=== PATIENT | female | born 1970 ===

== ENCOUNTER 2017-04-28 10:33 | Emergency (ER) | payer MEDICAID ==
[2017-04-28] MEDS ORDERED: Sodium Chloride 0.9% 1,000 ML IV STA (10:59)
--- NOTE | 2017-04-28 11:03 | ED PDOC ---
HPI: Abdomen Time Seen by Provider: 04/28/17 10:50 History Per: Patient Onset/Duration Of Symptoms: Days (2) Current Symptoms Are (Timing): Still Present Severity: Moderate Pain Scale Rating Of: 3 Location Of Pain/Discomfort: LLQ Quality Of Discomfort: Unable To Describe Associated Symptoms: denies: Nausea, Vomiting, Diarrhea, Urinary Symptoms Additional Complaint(s): LLQ abd pain radiating up and down leg x 2 days. Debies NVD. No urinary sxs. Assoc with chills. Past Medical History Vital Signs: Last Vital Signs Temp 98 F 04/28/17 11:06 Pulse 81 04/28/17 11:06 Resp 20 04/28/17 11:06 BP 130/60 04/28/17 11:06 Pulse Ox 100 04/28/17 11:06 - Medical History PMH: No Chronic Diseases - Surgical History Surgical History: Cholecystectomy - Family History Family History: States: Unknown Family Hx - Immunization History Hx Tetanus Toxoid Vaccination: No Hx Influenza Vaccination: No Hx Pneumococcal Vaccination: No - Home Medications Home Medications: Ambulatory Orders Medication Instructions Recorded Naproxen 500 mg PO BID #30 tab 04/19/17 Phenazopyridine HCl [Pyridium] 200 mg PO BID #6 tablet 04/19/17 Naproxen [Naprosyn] 500 mg PO Q12H #20 tab 04/28/17 - Allergies Allergies/Adverse Reactions: Allergies Allergy/AdvReac Type Severity Reaction Status Date / Time No Known Allergies Allergy Verified 04/19/17 14:30 Review of Systems Constitutional: Positive for: Chills. Negative for: Fever Gastrointestinal: Positive for: Abdominal Pain. Negative for: Nausea, Vomiting , Diarrhea Genitourinary Female: Negative for: Dysuria, Frequency Musculoskeletal: Negative for: Back Pain Physical Exam - Physical Exam Appears: Positive for: Non-toxic, No Acute Distress Skin: Positive for: Normal Color Cardiovascular/Chest: Positive for: Regular Rate, Rhythm Respiratory: Positive for: CNT, Normal Breath Sounds Gastrointestinal/Abdominal: Positive for: Bowel Sounds, Soft. Negative for: Tenderness, Mass Back: Negative for: L CVA Tenderness, R CVA Tenderness - Laboratory Results Result Diagrams: 04/28/17 11:34 04/28/17 11:34 Disposition - Clinical Impression Clinical Impression: Uterine leiomyoma - Patient ED Disposition Is Patient to be Admitted: No Counseled Patient/Family Regarding: Studies Performed, Diagnosis, Need For Followup, Rx Given - Disposition [facility] Disposition: Routine/Home Disposition Time: 13:08 Condition: FAIR Prescriptions: Naproxen [Naprosyn] 500 mg PO Q12H #20 tab Instructions: Uterine Fibroids Print Language: ROMANIAN
[2017-04-28 11:10] VITALS: RESP 20; TEMP 98
[2017-04-28 11:43] LABS: BASO # 0.1 K/uL (0.0-0.2); BASO % 0.6 % (0.0-2.0); EOS % 0.1 % (0.0-4.0); HEMOGLOBIN 12.6 g/dL (12.0-16.0); LYMPH # 1.8 K/uL (1.0-4.3); LYMPH % 13.5 % (20.0-40.0); MEAN CORPUSCULAR HEMOGLOBIN 26.7 pg (27.0-31.0); MEAN CORPUSCULAR HGB CONC 33.7 g/dL (33.0-37.0); MEAN PLATELET VOLUME 10.2 fl (7.2-11.7); MONO # 0.7 K/uL (0.0-0.8); MONO % 5.7 % (0.0-10.0); NEUT # 10.4 K/uL (1.8-7.0); NEUT % 80.1 % (50.0-75.0); RBC 4.74 Mil/uL (3.80-5.20); RED CELL DISTRIBUTION WIDTH 15.8 % (11.5-14.5)
[2017-04-28 12:01] LABS: ALB/GLOB RATIO 1.4 (1.0-2.1); ALBUMIN 4.5 g/dL (3.5-5.0); ALT/SGPT 26 U/L (9-52); AST/SGOT 31 U/L (14-36); BLOOD UREA NITROGEN 13 mg/dl (7-17); CALCIUM 9.6 mg/dL (8.4-10.2); GFR AFRICAN-AMERICAN > 60; GFR NON-AFRICAN AMERICAN > 60
--- NOTE | 2017-04-28 12:47 | US ---
HISTORY: LLQ pain COMPARISON: None available. TECHNIQUE: Grayscale, color Doppler and spectral evaluation the pelvis performed transvaginally. FINDINGS: UTERUS: Measures 7.7 x 6.9 x 6.1 cm. Retroverted. Normal in size and appearance. Multiple hypoechoic structures scattered throughout the uterus, likely fibroids. A mid uterine body fibroid measures 1.8 by move 2.3 x 1.2 cm. A posterior mid uterine body fibroid measures 4 point 7 x 2.5 x 1.6 cm. Another mid uterine body fibroid measures 1.9 x 1.9 x 1.7 cm. An anterior subserosal fibroid measures 1.3 x 1.4 x 1.9 cm. A small posterior subserosal fibroid measures 1.3 x 1.4 x 0.9 cm. ENDOMETRIUM: Measures 10 mm in diameter. Unremarkable. CERVIX: Nabothian cyst. No cervical abnormality identified. RIGHT OVARY: Measures 3.5 x 3.0 x 1.9 cm. No solid mass. Normal flow. LEFT OVARY: Measures 3.1 x 2.3 x 1.6 cm. No solid mass. Normal flow. FREE FLUID: No significant free fluid noted. OTHER FINDINGS: None. IMPRESSION: Leiomyomatous uterus with largest fibroid measuring up to 2.5 cm.
--- NOTE | 2017-04-28 15:30 | CT ---
PROCEDURE: CT Abdomen and Pelvis without intravenous contrast HISTORY: r/o kidney stone COMPARISON: None. TECHNIQUE: Contiguous images were obtained from the domes of the diaphragms to the upper thighs without the administration of intravenous contrast. Oral contrast was not administered. Radiation dose: Total exam DLP = 817.6 mGy-cm. This CT exam was performed using one or more of the following dose reduction techniques: Automated exposure control, adjustment of the mA and/or kV according to patient size, and/or use of iterative reconstruction technique. FINDINGS: LOWER THORAX: Bibasilar atelectasis. No consolidation or pleural effusion. Heart size normal. LIVER: Unremarkable. No gross lesion or ductal dilatation. GALLBLADDER AND BILE DUCTS: Prior cholecystectomy with surgical clips in place and expected prominence of the CBD up to 10 mm. PANCREAS: Unremarkable. No gross lesion or ductal dilatation. SPLEEN: Unremarkable. ADRENALS: Unremarkable. No mass. KIDNEYS AND URETERS: Left upper pole hyper attenuating structure measuring 1.3 x 1.5 cm. No hydronephrosis. No solid mass. VASCULATURE: Unremarkable. No aortic aneurysm. BOWEL: Unremarkable. No obstruction. No gross mural thickening. APPENDIX: Unremarkable. Normal appendix. PERITONEUM: Unremarkable. No free fluid. No free air. LYMPH NODES: Unremarkable. No enlarged lymph nodes. BLADDER: Unremarkable. REPRODUCTIVE: Bulky uterus compatible with multiple leiomyomas. BONES: No acute fracture. OTHER FINDINGS: None. IMPRESSION: No urolithiasis or evidence of recently passed genitourinary calculus. Left upper pole 1.5 cm hyperattenuating structure likely represents a proteinaceous/hemorrhagic cyst. Renal ultrasound can be obtained for further evaluation on a nonemergent basis. Additional findings as above.
[2017-04-28 16:05] VITALS: BP 120/78; PULSE 78; O2SAT 98
== END 2017-04-28 16:14 | disposition home or self-care (01) ==
LOC: H.ER 10:33
DX: D25.9 Leiomyoma of uterus, unspecified (principal)
CPT/HCPCS: 74176; 76830; 80053; 81025; 85025; 96374; 99282; J1885; J7040